=== PATIENT | female | born 1955 | race Caucasian/White ===

== ENCOUNTER 2018-08-24 17:32 | Emergency (ER) | payer MEDICAID, SELFPAY ==
[2018-08-24 17:32] VITALS: BP 118/70; PULSE 86; RESP 18; TEMP 36.7; O2SAT 95; BMI 20.1
--- NOTE | 2018-08-24 18:01 | CT_ITS ---
STUDY: CT ABDOMEN AND PELVIS WITH CONTRAST REASON FOR EXAM: Female, 62 years old. Abdominal pain. RADIATION DOSAGE (If Supplied By Facility): CTDIvol = ( 13.00 ) mGy, DLP = ( 623.04 ) mGycm TECHNIQUE: Transaxial images were obtained from the dome of the diaphragm to the symphysis pubis without oral contrast. 100ML ml of Isovue 300 contrast was administered. Sagittal and coronal images were reconstructed. Individualized dose optimization techniques were used for this CT. COMPARISON: None. FINDINGS: The visualized lung bases are unremarkable. The visualized portions of the heart are within normal limits. Normal liver. Gallbladder is surgically absent. Normal spleen. Normal pancreas. Normal bilateral adrenal glands. Normal right kidney. Normal left kidney. The aorta is normal in caliber. There is no bowel obstruction or inflammatory change. Fluid levels are noted in the large and small bowel. This is nonspecific, but may be associated with enterocolitis. There is no free fluid, free air, or organized collection. Normal urinary bladder. Normal abdominal wall. Normal osseous structures. CT/Abdomen/Pelvis WITH Contrast IMPRESSION: Nonspecific fluid levels in the large and small bowel, possible enterocolitis. Electronically Signed: Isaura Deng MD at 20:50 EST Tel , Service support ,
[2018-08-24] MEDS: Morphine 4 MG/ML Syringe IV (18:17)
[2018-08-24] MEDS: 0.9% Normal Saline 1,000 ML 1000 ML IV (18:17)
[2018-08-24] MEDS: Ondansetron 4 MG/2 ML Vial IV (18:17)
[2018-08-24 18:28] LABS: Bacteria 0 SEEN /hpf (None Seen)
--- NOTE | 2018-08-24 18:30 | ED.VISSUMM ---
- ER Visit Summary Date of Service: 08/24/18 Chief Complaint: Abdominal pain History of Present Illness: The patient is a 62 F who presents for 2 days of abdominal pain, significantly worse since last night. Pain is in the left upper quadrant. It is continuous and crampy in nature. It is improved by patient keeping her knees up to her chest. She has associated nausea and has had watery brown stool. She has not had a bowel movement and several days and so took 3 stool softeners. She is not passing gas. She has not eaten food in 1 month due to depression and a breakup. She denies fever, acute worsening of baseline chest pain and shortness of breath. Patient has history of exploratory laparotomy, hysterectomy, cholecystectomy. Medical history remarkable for bottom chambers of my heart leak and COPD. Physical Examination: Vital signs: afebrile, hemodynamically stable, no hypoxia on room air General: well nourished, well developed, thin, in no distress but appears uncomfortable, knees pulled chest in sitting position Skin: warm, dry, no rash, no pallor HEENT: normocephalic and atraumatic; PERRL, EOMI, moist mucous membranes Cardiovascular: regular rate and rhythm without murmurs, no peripheral edema, 2+ pulses all distal extremities Respiratory: No increased work of breathing, lungs are clear to auscultation bilaterally, no rales, rhonchi or wheezing Abdominal: Abdomen is soft, tender in the left upper and lower quadrants with hyperactive bowel sounds, no guarding or rebound, no masses MSK: Moves all extremities, no deformities, normal strength Neuro: Awake and alert, oriented ?4. No facial droop, sensation and motor function intact and symmetric Test Results: Abnormal Lab Results 08/24/18 08/24/18 08/24/18 18:15 18:20 18:20 WBC 5.3 RBC 4.98 Hgb 14.9 Hct 44.0 MCV 88.4 MCH 29.9 MCHC 33.9 RDW 12.4 RDW Differential 39.7 Plt Count 152 MPV 10.4 Immature Gran % (Auto) 0.200 Neut % (Auto) 90.6 H Lymph % (Auto) 4.4 L [place] % (Auto) 4.0 Eos % (Auto) 0.8 Baso % (Auto) 0.0 Absolute Neuts (auto) 4.8 Absolute Lymphs (auto) 0.23 L Total Counted Not Reportable Differential Comment SCANNED Sodium 141 Potassium 3.7 Chloride 107 Carbon Dioxide 25.0 Anion Gap 9 BUN 15 Creatinine 0.97 Estim Creat Clear Calc 54.52 Est GFR (MDRD) Af Amer 75 Est GFR (MDRD) Non-Af 62 BUN/Creatinine Ratio 15.5 Glucose 109 H Lactic Acid Calcium 8.8 Total Bilirubin 0.40 AST 53 H ALT 44 Alkaline Phosphatase 73 Total Protein 7.7 Albumin 3.9 Globulin 3.8 Albumin/Globulin Ratio 1.0 Lipase 76 Urine Color Yellow Urine Clarity Clear Urine pH 5.0 Ur Specific [place] 1.020 Urine Protein 15 H Urine Glucose (UA) Normal Urine Ketones 50 H Urine Occult Blood 50 H Urine Nitrite Negative Urine Bilirubin Negative Urine Urobilinogen Normal Ur Leukocyte Esterase 25 H Urine RBC 0-5 SEEN Urine WBC 0-5 SEEN Ur Squamous Epith Cells 0-5 SEEN Urine Bacteria 0 SEEN Urine Mucus RARE 08/24/18 18:20 WBC RBC Hgb Hct MCV MCH MCHC RDW RDW Differential Plt Count MPV Immature Gran % (Auto) Neut % (Auto) Lymph % (Auto) [place] % (Auto) Eos % (Auto) Baso % (Auto) Absolute Neuts (auto) Absolute Lymphs (auto) Total Counted Differential Comment Sodium Potassium Chloride Carbon Dioxide Anion Gap BUN Creatinine Estim Creat Clear Calc Est GFR (MDRD) Af Amer Est GFR (MDRD) Non-Af BUN/Creatinine Ratio Glucose Lactic Acid 1.1 Calcium Total Bilirubin AST ALT Alkaline Phosphatase Total Protein Albumin Globulin Albumin/Globulin Ratio Lipase Urine Color Urine Clarity Urine pH Ur Specific [place] Urine Protein Urine Glucose (UA) Urine Ketones Urine Occult Blood Urine Nitrite Urine Bilirubin Urine Urobilinogen Ur Leukocyte Esterase Urine RBC Urine WBC Ur Squamous Epith Cells Urine Bacteria Urine Mucus Clinical Impression(s) from Imaging Studies Abdomen/Pelvis CT 08/24/18 18:01 IMPRESSION: Nonspecific fluid levels in the large and small bowel, possible enterocolitis. Electronically Signed: Isaura Deng MD at 20:50 EST Tel , Service support , Medications Given Discontinued Medications Sodium Chloride () 1,000 mls @ 1,000 mls/hr IV .Q1H ONE Stop: 08/24/18 19:00 Last Admin: 11/10/18 18:17 Dose: 1,000 mls/hr Morphine Sulfate () 4 mg IV X1 ONE Stop: 08/24/18 18:02 Last Admin: 08/24/18 18:17 Dose: 4 mg Ondansetron HCl (Zofran) 4 mg IV X1 ONE Stop: 08/24/18 18:02 Last Admin: 08/24/18 18:17 Dose: 4 mg Promethazine HCl (Phenergan Tablet) 25 mg PO X1 ONE Stop: 08/24/18 18:05 Emergency Department Course and Treatment: Patient was given IV fluids, morphine and Zofran for symptomatic relief. Labs performed. CT the abdomen and pelvis performed to evaluate for possible bowel obstruction or other acute pathology. Labs showed no leukocytosis but a neutrophil predominance on differential. No electrolyte, renal or hepatic derangements. Lipase normal. Urine was negative for infection. Lactate normal at 1.1. Patient was reevaluated and still was having some pain. She was given additional pain medication. CT the abdomen pelvis with p.o. and IV contrast showed no sign of bowel obstruction but was consistent with enterocolitis of unknown clear etiology. Because patient has been having the severe pain, subjective fever at home, has a neutrophil predominance on her differential, she will be started on coverage for bacterial enterocolitis. Patient was given Cipro, Flagyl, and prescribed Phenergan and [place] for symptomatic relief at home. Upon further discussion, patient states 2 years ago she had a CT scan that was concerning for inflammatory bowel disease, however she then had a colonoscopy that did not show Crohn's disease or ulcerative colitis. She has not gone back for repeat colonoscopies, and was supposed to get them annually. Patient was strongly advised to follow-up with her GI doctor and that she should receive another colonoscopy, especially if she has persistent symptoms, as it may be something other than infectious enterocolitis. Patient agreed and was discharged home. Treatment Plan: [] Disposition: [] Impression: Acute enterocolitis, suspected bacterial This note was generated with [employer] software. It may contain incorrect words, spelling, and punctuation that were not noted in review of the chart prior to signing ED Disposition - Plan for ED Patient: Disposition: Home or Assisted Living Chief Complaint: Abd Pain Instructions: ED Gastroenteritis Bacterial Prescriptions: Hydrocodone Bitart/Apap 5-325 [[place] 5MG-325MG] 1 tab PO Q6H PRN PRN 3 Days #8 tab PRN Reason: Pain proMETHazine tablet [Phenergan] 25 mg PO Q6H PRN PRN #15 tab PRN Reason: Nausea Metronidazole [Flagyl] 500 mg PO Q8H #21 tab Ciprofloxacin [Cipro] 500 mg PO BID #14 tab Referrals: Alize Benito, SHIELA-C [Primary Care Provider] - 3-5 Days if not improving Additional Instructions: You have enterocolitis, which is inflammation of your colon, and which is the cause of your pain, diarrhea and feverish feeling. It may be due to a bacterial infection or it may be due to inflammatory bowel disease. Please take antibiotics as prescribed for the full 7 days and less told to stop by her doctor. Use the [place] for severe pain and use [id number] pain medication of your choice for mild to moderate pain. Use the Phenergan as needed for nausea. Please follow-up as soon as possible with your health and nutrition specialist to discuss another colonoscopy. If you have any worsening of your condition or any new concerning symptoms, please return immediately to the emergency department for another evaluation.
[2018-08-24 18:32] LABS: Glucose, Dipstick Normal (Normal); Ketone-Dipstick 50 mg/dl (Negative); Leukocyte Esterase-Dipstick 25 /ul (Negative); Nitrite-Dipstick Negative (Negative); Occult Blood-Urine 50 /ul (Negative); Protein-Dipstick 15 mg/dl (Negative); Urine Bilirubin Dipstick Negative (Negative); Urine Urobilinogen Normal (Normal)
--- NOTE | 2018-08-24 18:34 | ED.DCSUM_ITS ---
- ER Visit Summary Date of Service: 08/24/18 Chief Complaint: Abdominal pain History of Present Illness: The patient is a 62 F who presents for 2 days of abdominal pain, significantly worse since last night. Pain is in the left upper quadrant. It is continuous and crampy in nature. It is improved by patient keeping her knees up to her chest. She has associated nausea and has had watery brown stool. She has not had a bowel movement and several days and so took 3 stool softeners. She is not passing gas. She has not eaten food in 1 month due to depression and a breakup. She denies fever, acute worsening of baseline chest pain and shortness of breath. Patient has history of exploratory laparoto my, hysterectomy, cholecystectomy. Medical history remarkable for bottom chambers of my heart leak and COPD. Physical Examination: Vital signs: afebrile, hemodynamically stable, no hypoxia on room air General: well nourished, well developed, thin, in no distress but appears uncomfortable, knees pulled chest in sitting position Skin: warm, dry, no rash, no pallor HEENT: normocephalic and atraumatic; PERRL, EOMI, moist mucous membranes Cardiovascular: regular rate and rhythm without murmurs, no peripheral edema, 2+ pulses all distal extremities Respiratory: No increased work of breathing, lungs are clear to auscultation bilaterally, no rales, rhonchi or wheezing Abdominal: Abdomen is soft, tender in the left upper and lower quadrants with hyperactive bowel sounds, no guarding or rebound, no masses MSK: Moves all extremities, no deformities, normal strength Neuro: Awake and alert, oriented ?4. No facial droop, sensation and motor function intact and symmetric Test Results: Abnormal Lab Results 08/24/18 08/24/18 08/24/18 18:15 18:20 18:20 WBC 5.3 RBC 4.98 Hgb 14.9 Hct 44.0 MCV 88.4 MCH 29.9 MCHC 33.9 RDW 12.4 RDW Differential 39.7 Plt Count 152 MPV 10.4 Immature Gran % (Auto) 0.200 Neut % (Auto) 90.6 H Lymph % (Auto) 4.4 L [place] % (Auto) 4.0 Eos % (Auto) 0.8 Baso % (Auto) 0.0 Absolute Neuts (auto) 4.8 Absolute Lymphs (auto) 0.23 L Total Counted Not Reportable Differential Comment SCANNED Sodium 141 Potassium 3.7 Chloride 107 Carbon Dioxide 25.0 Anion Gap 9 BUN 15 Creatinine 0.97 Estim Creat Clear Calc 54.52 Est GFR (MDRD) Af Amer 75 Est GFR (MDRD) Non-Af 62 BUN/Creatinine Ratio 15.5 Glucose 109 H Lactic Acid Calcium 8.8 Total Bilirubin 0.40 AST 53 H ALT 44 Alkaline Phosphatase 73 Total Protein 7.7 Albumin 3.9 Globulin 3.8 Albumin/Globulin Ratio 1.0 Lipase 76 Urine Color Yellow Urine Clarity Clear Urine pH 5.0 Ur Specific [place] 1.020 Urine Protein 15 H Urine Glucose (UA) Normal Urine Ketones 50 H Urine Occult Blood 50 H Urine Nitrite Negative Urine Bilirubin Negative Urine Urobilinogen Normal Ur Leukocyte Esterase 25 H Urine RBC 0-5 SEEN Urine WBC 0-5 SEEN Ur Squamous Epith Cells 0-5 SEEN Urine Bacteria 0 SEEN Urine Mucus RARE 08/24/18 18:20 WBC RBC Hgb Hct MCV MCH MCHC RDW RDW Differential Plt Count MPV Immature Gran % (Auto) Neut % (Auto) Lymph % (Auto) [place] % (Auto) Eos % (Auto) Baso % (Auto) Absolute Neuts (auto) Absolute Lymphs (auto) Total Counted Differential Comment Sodium Potassium Chloride Carbon Dioxide Anion Gap BUN Creatinine Estim Creat Clear Calc Est GFR (MDRD) Af Amer Est GFR (MDRD) Non-Af BUN/Creatinine Ratio Glucose Lactic Acid 1.1 Calcium Total Bilirubin AST ALT Alkaline Phosphatase Total Protein Albumin Globulin Albumin/Globulin Ratio Lipase Urine Color Urine Clarity Urine pH Ur Specific [place] Urine Protein Urine Glucose (UA) Urine Ketones Urine Occult Blood Urine Nitrite Urine Bilirubin Urine Urobilinogen Ur Leukocyte Esterase Urine RBC Urine WBC Ur Squamous Epith Cells Urine Bacteria Urine Mucus Clinical Impression(s) from Imaging Studies Abdomen/Pelvis CT 08/24/18 18:01 IMPRESSION: Nonspecific fluid levels in the large and small bowel, possible enterocolitis. Electronically Signed: Isaura Deng MD at 20:50 EST Tel , Service support , Medications Given Discontinued Medications Sodium Chloride () 1,000 mls @ 1,000 mls/hr IV .Q1H ONE Stop: 08/24/18 19:00 Last Admin: 08/24/18 18:17 Dose: 1,000 mls/hr Morphine Sulfate () 4 mg IV X1 ONE Stop: 08/24/18 18:02 Last Admin: 08/24/18 18:17 Dose: 4 mg Ondansetron HCl (Zofran) 4 mg IV X1 ONE Stop: 08/24/18 18:02 Last Admin: 08/24/18 18:17 Dose: 4 mg Promethazine HCl (Phenergan Tablet) 25 mg PO X1 ONE Stop: 08/24/18 18:05 Emergency Department Course and Treatment: Patient was given IV fluids, morphine and Zofran for symptomatic relief. Labs performed. CT the abdomen and pelvis performed to evaluate for possible bowel obstruction or other acute pathology. Labs showed no leukocytosis but a neutrophil predominance on differential. No electrolyte, renal or hepatic derangements. Lipase normal. Urine was negative for infection. Lactate normal at 1.1. Patient was reevaluated and still was having some pain. She was given additional pain medication. CT the abdomen pelvis with p.o. and IV contrast showed no sign of bowel obstruction but was consistent with enterocolitis of unknown clear etiology. Because patient has been having the severe pain, subjective fever at home, has a neutrophil predominance on her differential, she will be started on coverage for bacterial enterocolitis. Patient was given Cipro, Flagyl, and prescribed Phenergan and [place] for symptomatic relief at home. Upon further discussion, patient states 2 years ago she had a CT scan that was concerning for inflammatory bowel disease, however she then had a colonoscopy that did not show Crohn's disease or ulcerative colitis. She has not gone back for repeat colonoscopies, and was supposed to get them annually. Patient was strongly advised to follow-up with her GI doctor and that she should receive another colonoscopy, especially if she has persistent symptoms, as it may be something other than infectious enterocolitis. Patient agreed and was discharged home. Treatment Plan: [] Disposition: [] Impression: Acute enterocolitis, suspected bacterial This note was generated with [employer] software. It may contain incorrect words, spelling, and punctuation that were not noted in review of the chart prior to signing ED Disposition - Plan for ED Patient: Disposition: Home or Assisted Living Chief Complaint: Abd Pain Instructions: ED Gastroenteritis Bacterial Prescriptions: Hydrocodone Bitart/Apap 5-325 [[place] 5MG-325MG] 1 tab PO Q6H PRN PRN 3 Days #8 tab PRN Reason: Pain proMETHazine tablet [Phenergan] 25 mg PO Q6H PRN PRN #15 tab PRN Reason: Nausea Metronidazole [Flagyl] 500 mg PO Q8H #21 tab Ciprofloxacin [Cipro] 500 mg PO BID #14 tab Referrals: Alize Benito, SHIELA-C [Primary Care Provider] - 3-5 Days if not improving Additional Instructions: You have enterocolitis, which is inflammation of your colon, and which is the cause of your pain, diarrhea and feverish feeling. It may be due to a bacterial infection or it may be due to inflammatory bowel disease. Please take antibiotics as prescribed for the full 7 days and less told to stop by her doctor. Use the [place] for severe pain and use [id number] pain medication of your choice for mild to moderate pain. Use the Phenergan as needed for nausea. Please follow-up as soon as possible with your lockstitch pocket setter to discuss another colonoscopy. If you have any worsening of your condition or any new concerning symptoms, please return immediately to the emergency department for another evaluation.
[2018-08-24 18:35] LABS: Color, Urine Yellow (Yellow); Urine Clarity Clear (Clear)
[2018-08-24 18:36] LABS: Absolute Lymphocyte Count 0.23 X10^3/ul (0.83-4.51); Absolute Neutrophil Count 4.8 X10^3/uL (2.0-7.7); Eosinophil# 0.04 X10^3/uL; Eosinophils% 0.8 % (0-5); Hemoglobin 14.9 g/dl (12.0-15.0); Lymphocyte # 0.23 X10^3/ul (4.0); Lymphocyte % 4.4 % (19-41); Mean Corp Hgb Conc 33.9 g/gl (32-36); Mean Corpuscular Hgb 29.9 pg (27.0-32.0); Mean Corpuscular Volume 88.4 fL (81-99); Mean Platelet Vol. 10.4 fl (6.2-12.0); Monocyte# 0.21 X10^3/uL; Neutrophil # 4.77 X10^3/uL (2.7-7.7); Neutrophil % 90.6 % (47-70); Platelet Count 152 K/mm3 (150-450); RBC Distribution Width CV 12.4 % (11.6-14.6); RBC Distribution Width SD 39.7 fl (35.1-43.9); Red Blood Count 4.98 M/mm3 (4.2-5.4); White Blood Count 5.3 K/mm3 (4.4-11.0)
[2018-08-24 18:37] LABS: Differential Indicated SCAN CRITERIA MET; POSITIVE COUNT NO; POSITIVE DIFFERENTIAL YES; POSITIVE MORPHOLOGY NO
[2018-08-24 18:45] LABS: White Blood Cells 0-5 SEEN /hpf (0-5)
[2018-08-24 18:46] LABS: Mucous, Urine RARE /hpf (<or=2+); Red Blood Cells-Urine 0-5 SEEN /hpf (0-5); Squamous Epithelial Cells - UA 0-5 SEEN /hpf (5-10)
[2018-08-24 18:52] LABS: AST(SGOT) 53 U/L (15-37); Alanine Aminotransfer ALT/SGPT 44 U/L (13-56); Albumin, Serum 3.9 g/dL (3.2-5.0); Alkaline Phosphatase 73 U/L (45-117); Anion Gap 9 (5-15); BUN 15 mg/dL (7-18); BUN/Creat Ratio 15.5 RATIO (10-20); Calcium,Total 8.8 mg/dL (8.5-10.1); Chloride 107 mmol/L (98-107); Creatinine, Serum 0.97 mg/dL (0.55-1.02); EST Glomerular Filtration Rate 62 mL/min (>60); Est Glom Filt Rate - Afr Amer 75 mL/min (>60); Estimated Creatinine Clearance 54.52 ml/min; Globulin 3.8 g/dL (2.2-4.2); Glucose 109 mg/dL (74-106); Lipase 76 U/L (73-393); Potassium 3.7 mmol/L (3.5-5.1); Protein, Total 7.7 g/dL (6.4-8.2); Sodium Level 141 mmol/L (136-145)
[2018-08-24 19:11] LABS: Differential Comment SCANNED
[2018-08-24 19:13] LABS: Lactic Acid 1.1 mmol/L (0.4-2.0)
[2018-08-24 20:08] VITALS: BP 108/75; PULSE 78; RESP 16; O2SAT 98
--- NOTE | 2018-08-24 21:35 | ED.DEP ---
ED Disposition - Plan for ED Patient: Disposition: Home or Assisted Living Chief Complaint: Abd Pain Instructions: ED Gastroenteritis Bacterial Prescriptions: Hydrocodone Bitart/Apap 5-325 [[place] 5MG-325MG] 1 tab PO Q6H PRN PRN 3 Days #8 tab PRN Reason: Pain proMETHazine tablet [Phenergan] 25 mg PO Q6H PRN PRN #15 tab PRN Reason: Nausea Metronidazole [Flagyl] 500 mg PO Q8H #21 tab Ciprofloxacin [Cipro] 500 mg PO BID #14 tab Referrals: Alize Benito, SHIELA-C [Primary Care Provider] - 3-5 Days if not improving Additional Instructions: You have enterocolitis, which is inflammation of your colon, and which is the cause of your pain, diarrhea and feverish feeling. It may be due to a bacterial infection or it may be due to inflammatory bowel disease. Please take antibiotics as prescribed for the full 7 days and less told to stop by her doctor. Use the [place] for severe pain and use [id number] pain medication of your choice for mild to moderate pain. Use the Phenergan as needed for nausea. Please follow-up as soon as possible with your marine fisheries technician to discuss another colonoscopy. If you have any worsening of your condition or any new concerning symptoms, please return immediately to the emergency department for another evaluation.
[2018-08-24] MEDS: HYDROcodone Bitartrate/Apap 5/325 Tablet PO (21:52)
[2018-08-24 21:53] VITALS: BP 96/24
== END 2018-08-24 21:58 | disposition home or self-care (01) ==
PROVIDERS: Emergency Provider Emergency Medicine; Family Provider Nurse Practitioner Family; PCP Nurse Practitioner Family
DX: K52.9 Noninfective gastroenteritis and colitis, unspecified (principal); F32.9 Major depressive disorder, single episode, unspecified; J44.9 Chronic obstructive pulmonary disease, unspecified; Z90.49 Acquired absence of other specified parts of digestive tract; Z79.899 Other long term (current) drug therapy; Z72.0 Tobacco use
CPT/HCPCS: 74177; 80053; 81001; 83605; 83690; 85025; 96361; 96374; 96375; 99284; J7030; Q9967; A4216; J2405

== ENCOUNTER → 2019-01-10 12:30 | Outpatient (CLI) | payer MEDICAID, SELFPAY ==
--- NOTE | 2019-01-10 12:33 | ECHOD_ITS ---
Reason For Study: Cerebellar Stroke Syndrome Procedure This was a 2D Doppler, Color Flow transthoracic echocardiogram. The exam was of adequate technical quality. Exam performed in department. Left Ventricle Normal LV size. Left ventricular systolic function is normal. The estimated ejection fraction is 60 %. No evidence for diastolic dysfunction. No regional wall motion abnormalities noted. Right Ventricle Normal RV size. Normal systolic function. Atria Normal left atrium. Normal right atrium. No doppler evidence for ASD. Bubble contrast study negative for right to left interatrial shunt. Mitral Valve There is no mitral annular calcification. Normal mitral valve. Mild (1+) eccentric mitral valve insufficiency. Tricuspid Valve Normal tricuspid valve. Mild to moderate (1-2+) tricuspid valve insufficiency. Right ventricular systolic pressure estimated to be 33 mmHg. Aortic Valve Trisinus/trileaflet aortic valve. Normal aortic valve. Pulmonic Valve The pulmonic valve is not well visualized. Great Vessels Normal sized aortic root. Pericardium/Pleural No pericardial effusion. Medication 22 gauge I.V. with prn adaptor inserted into right arm. Performed a rapid injection of agitated mix of 9 cc saline and 1cc air to assess for atrial septal defect. MMode/2D Measurements & Calculations LVIDd: 4.3 cm IVSd: 0.75 cm Ao root diam: 3.0 cm LVIDs: 2.2 cm LVPWd: 0.79 cm LA dimension: 2.4 cm RVDd: 2.9 cm FS: 49.7 % LAV(MOD-bp): 38.8 ml LA A4 area: 14.2 cm2 RA A4 area: 11.8 cm2 LAV(MOD-bp) Indexed: 24.1 ml/m2 LAV(MOD-sp2): 42.8 ml LAV(MOD-sp4): 31.9 ml Time Measurements MV dec time: 0.25 sec Doppler Measurements & Calculations MV E max chucho: 85.7 cm/sec Lat Peak E' Chucho: 8.8 cm/sec Med Peak E' Chucho: 9.2 cm/sec MV A max chucho: 98.7 cm/sec E/E' lat: 9.8 E/E' med: 9.4 MV E/A: 0.87 MV V2 max: 113.4 cm/sec MV P1/2t max chucho: 115.1 cm/sec Ao V2 max: 112.5 cm/sec MV max P.1 mmHg MV P1/2t: 75.8 msec Ao max P.1 mmHg MV V2 mean: 59.3 cm/sec MV dec slope: 444.8 cm/sec2 Ao V2 mean: 74.9 cm/sec MV mean P.7 mmHg Ao mean P.5 mmHg MV V2 VTI: 32.7 cm MVA(P1/2t): 2.9 cm2 Ao V2 VTI: 26.0 cm LV V1 max: 104.6 cm/sec PA V2 max: 50.5 cm/sec TR max chucho: 275.2 cm/sec LV V1 max P.4 mmHg TR max P.3 mmHg LV V1 mean P.1 mmHg LV V1 mean: 67.6 cm/sec LV V1 VTI: 24.9 cm Interpretation Summary Left ventricular systolic function is normal. The estimated ejection fraction is 60 %. Mild (1+) eccentric mitral valve insufficiency. Mild to moderate (1-2+) tricuspid valve insufficiency. Right ventricular systolic pressure estimated to be 33 mmHg. No evidence for diastolic dysfunction. Bubble contrast study negative for right to left interatrial shunt. Ordering Physician: Rodri Aguillon Referring Physician: Rodri Aguillon Performed By: Phillip Mccall RCS
== END ==
PROVIDERS: Family Provider Nurse Practitioner Family; PCP Nurse Practitioner Family; Referring Provider Psychiatry & Neurology Neurology; Visit Provider Psychiatry & Neurology Neurology
DX: R42 Dizziness and giddiness (principal); Z86.73 Personal history of transient ischemic attack (TIA), and cerebral infarction without residual deficits
CPT/HCPCS: 93306; A4216